=== PATIENT | female | born 1940 | race Caucasian/White ===

== ENCOUNTER → 2017-06-04 | Outpatient (CLI) | payer MEDICARE, BC ==
[~2017-06-04] MED LIST: ALPR1 PO; CHOL10002 PO; DONE10 PO; DULO60 PO; ENOX40I SC; MELA3 PO; NAPR220 PO; OMEP40CA12 PO; OXYACE5T PO
== END | disposition home or self-care (01) ==
LOC: LAB EV 17:31
DX: N76.0 Acute vaginitis (principal); B96.89 Other specified bacterial agents as the cause of diseases classified elsewhere
CPT/HCPCS: 87070; 87205

== ENCOUNTER → 2018-07-06 | Outpatient (CLI) | payer MEDICARE, BC ==
[2018-07-06 13:39] LABS: BASOPHILS ABSOLUTE AUTO 0.03 K/mm3 (0.00-0.23); BASOPHILS PERCENT AUTO 0 % (0-2); EOSINOPHILS ABSOLUTE AUTO 0.01 K/mm3 (0.00-0.68); EOSINOPHILS PERCENT AUTO 0 % (0-6); Hematocrit 42.7 % (33.0-51.0); Hemoglobin 14.6 g/dL (11.5-16.0); IMMATURE GRAN ABSOLUTE AUTO 0.04 K/mm3 (0.00-0.10); IMMATURE GRAN PERCENT AUTO 0 % (0-1); LYMPHOCYTES ABSOLUTE AUTO 0.68 K/mm3 (0.84-5.20); LYMPHOCYTES PERCENT AUTO 6 % (21-46); MONOCYTES ABSOLUTE AUTO 0.21 K/mm3 (0.16-1.47); MONOCYTES PERCENT AUTO 2 % (4-13); Mean Corpuscular HGB Conc 34.2 g/dL (31.5-36.5); Mean Corpuscular Volume 91 fL (80-100); Mean Platelet Volume 11.7 fL (9.1-12.4); NEUTROPHILS ABSOLUTE AUTO 10.16 K/mm3 (1.96-9.15); NEUTROPHILS PERCENT AUTO 91 % (41-73); Platelet Count 228 K/mm3 (150-400); RDW Coefficient Variation 13.1 % (11.7-14.2); RDW Standard Deviation 43.5 fL (35.1-46.3); Red Blood Cell Count 4.71 M/mm3 (3.80-5.20); White Blood Cell Count 11.13 K/mm3 (4.00-11.30)
[2018-07-06 13:52] LABS: Alanine Aminotransfer (ALT/SGP 27 U/L (12-78); Albumin, Blood 4.5 g/dL (3.4-5.0); Albumin/Globulin Ratio 1.3 (0.8-1.8); Alk Phos 95 U/L (40-126); Anion Gap 12 mmol/L (6-16); Aspartate Aminotrans (AST/SGOT 20 U/L (12-37); Bilirubin, Total 0.7 mg/dL (0.1-1.0); Blood Urea Nitrogen 12 mg/dL (8-24); Bun/Creatinine Ratio 15.2 (12.0-20.0); CO2, Blood 28 mmol/L (21-32); Calcium, Blood 9.7 mg/dL (8.5-10.1); Chloride, Blood 103 mmol/L (98-108); Creatinine, Blood 0.79 mg/dL (0.40-1.00); Globulin, Blood 3.6 g/dL (2.2-4.0); Glomerular Filtration Rate >60 (60-); Glucose, Blood 132 mg/dL (70-99); Potassium, Blood 3.9 mmol/L (3.5-5.5); Sodium, Blood 143 mmol/L (136-145); Total Protein, Blood 8.1 g/dL (6.4-8.2)
== END | disposition home or self-care (01) ==
LOC: LAB SHORT 13:35 → LAB EV 13:35
PROVIDERS: Family Medicine
DX: N39.0 Urinary tract infection, site not specified (principal); R11.2 Nausea with vomiting, unspecified
CPT/HCPCS: 80053; 85025

== ENCOUNTER 2018-07-22 16:28 | Emergency (ER) | payer MEDICARE ==
[~2018-07-22] VITALS: Ht 175.3 cm; Wt 74.8 kg
[2018-07-22 18:15] LABS: BASOPHILS ABSOLUTE AUTO 0.04 K/mm3 (0.00-0.23); BASOPHILS PERCENT AUTO 1 % (0-2); EOSINOPHILS ABSOLUTE AUTO 0.05 K/mm3 (0.00-0.68); EOSINOPHILS PERCENT AUTO 1 % (0-6); Hematocrit 37.1 % (33.0-51.0); Hemoglobin 12.2 g/dL (11.5-16.0); IMMATURE GRAN ABSOLUTE AUTO 0.01 K/mm3 (0.00-0.10); IMMATURE GRAN PERCENT AUTO 0 % (0-1); LYMPHOCYTES ABSOLUTE AUTO 1.49 K/mm3 (0.84-5.20); LYMPHOCYTES PERCENT AUTO 31 % (21-46); MONOCYTES ABSOLUTE AUTO 0.28 K/mm3 (0.16-1.47); MONOCYTES PERCENT AUTO 6 % (4-13); Mean Corpuscular HGB 31.7 pg (26.0-34.0); Mean Corpuscular HGB Conc 32.9 g/dL (31.5-36.5); Mean Corpuscular Volume 96 fL (80-100); Mean Platelet Volume 11.8 fL (9.1-12.4); NEUTROPHILS ABSOLUTE AUTO 2.98 K/mm3 (1.96-9.15); NEUTROPHILS PERCENT AUTO 62 % (41-73); Platelet Count 139 K/mm3 (150-400); RDW Coefficient Variation 12.4 % (11.7-14.2); RDW Standard Deviation 44.3 fL (35.1-46.3); Red Blood Cell Count 3.85 M/mm3 (3.80-5.20); White Blood Cell Count 4.85 K/mm3 (4.00-11.30)
[2018-07-22 18:32] LABS: Alanine Aminotransfer (ALT/SGP 25 U/L (12-78); Albumin, Blood 3.1 g/dL (3.4-5.0); Alk Phos 85 U/L (50-136); Anion Gap 3 mmol/L (6-16); Aspartate Aminotrans (AST/SGOT 18 U/L (12-37); Bilirubin, Total 0.3 mg/dL (0.1-1.0); Blood Urea Nitrogen 12 mg/dL (8-24); Bun/Creatinine Ratio 18.8 (12.0-20.0); CO2, Blood 29 mmol/L (21-32); Calcium, Blood 8.5 mg/dL (8.5-10.1); Chloride, Blood 111 mmol/L (98-108); Creatinine, Blood 0.64 mg/dL (0.40-1.00); Free Thyroxine 0.93 ng/dL (0.70-1.60); Glomerular Filtration Rate >60 (60-); Glucose, Blood 103 mg/dL (70-99); Potassium, Blood 3.9 mmol/L (3.5-5.5); Sodium, Blood 143 mmol/L (136-145); Total Protein, Blood 6.1 g/dL (6.4-8.2)
[2018-07-22 19:11] LABS: Source, Urine Clean Catch
[2018-07-22 19:13] LABS: Appearance, Urine Cloudy (Clear); Bilirubin, Urine Neg (Neg); Blood, Urine Neg (Neg); Color, Urine Yellow (P-Yellow); Glucose Qualitative, Urine Neg (Neg); Ketones, Urine Neg (Neg); Leukocyte Esterase, Urine Neg (Neg); Nitrite, Urine Neg (Neg); Protein, Urine 1+ (Neg); Urobilinogen, Urine NORM (Normal)
[2018-07-22 19:52] LABS: Amorphous Heavy (0-Heavy); Bacteria Few /hpf; Red Blood Cells, Urine Not Seen /hpf (0-2); Squamous Epithelial Cells Rare /hpf (Few); White Blood Cells, Urine Not Seen /hpf (0-5)
== END 2018-07-23 01:49 | disposition home or self-care (01) ==
LOC: ER 16:28
PROVIDERS: Emergency Medicine
DX: R53.1 Weakness (principal); Z79.899 Other long term (current) drug therapy; F03.90 Unspecified dementia, unspecified severity, without behavioral disturbance, psychotic disturbance, mood disturbance, and anxiety
CPT/HCPCS: 36415; 71046; 80053; 81001; 83735; 84439; 84443; 85025; 93005; 93010; 99285-25; J7030

== ENCOUNTER 2018-09-30 15:14 | Emergency (ER) | payer MEDICARE ==
[~2018-09-30] VITALS: Ht 172.7 cm; Wt 72.6 kg
[2018-09-30] MEDS ORDERED: KETO10 PO (16:51)
== END 2018-09-30 17:10 | disposition home or self-care (01) ==
LOC: ER 15:14
DX: M47.892 Other spondylosis, cervical region (principal); Z90.49 Acquired absence of other specified parts of digestive tract; Z87.891 Personal history of nicotine dependence; W18.30XA Fall on same level, unspecified, initial encounter
CPT/HCPCS: 70450; 72125; 99284-25

== ENCOUNTER 2021-09-23 09:20 | Emergency (ER) | payer MEDICARE ==
[~2021-09-23] VITALS: Ht 177.8 cm; Wt 68.0 kg
[~2021-09-23 09:20] MED LIST changes: +KETO10 PO
[2021-09-23 09:59] LABS: BASOPHILS ABSOLUTE AUTO 0.01 K/mm3 (0.00-0.23); BASOPHILS PERCENT AUTO 0 % (0-2); EOSINOPHILS PERCENT AUTO 0 % (0-6); Hematocrit 38.8 % (33.0-51.0); Hemoglobin 13.3 g/dL (11.5-16.0); IMMATURE GRAN ABSOLUTE AUTO 0.01 K/mm3 (0.00-0.10); IMMATURE GRAN PERCENT AUTO 0 % (0-1); LYMPHOCYTES ABSOLUTE AUTO 0.83 K/mm3 (0.84-5.20); LYMPHOCYTES PERCENT AUTO 23 % (21-46); MONOCYTES ABSOLUTE AUTO 0.23 K/mm3 (0.16-1.47); MONOCYTES PERCENT AUTO 6 % (4-13); Mean Corpuscular HGB 29.9 pg (26.0-34.0); Mean Corpuscular HGB Conc 34.3 g/dL (31.5-36.5); Mean Corpuscular Volume 87 fL (80-100); Mean Platelet Volume 12.2 fL (9.1-12.4); NEUTROPHILS PERCENT AUTO 71 % (41-73); Platelet Count 117 K/mm3 (150-400); RDW Coefficient Variation 12.3 % (11.7-14.2); RDW Standard Deviation 39.8 fL (35.1-46.3); Red Blood Cell Count 4.45 M/mm3 (3.80-5.20); White Blood Cell Count 3.68 K/mm3 (4.00-11.30)
[2021-09-23 10:17] LABS: Albumin, Blood 3.5 g/dL (3.4-5.0); Albumin/Globulin Ratio 1.1 (0.8-1.8); Bilirubin, Total 0.6 mg/dL (0.1-1.0); Bun/Creatinine Ratio 23.1 (12.0-20.0); Creatinine, Blood 0.61 mg/dL (0.40-1.00); Globulin, Blood 3.2 g/dL (2.2-4.0); Potassium, Blood 3.3 mmol/L (3.5-5.5); Total Protein, Blood 6.7 g/dL (6.4-8.2)
[2021-09-23 10:48] LABS: Source, Urine Clean Catch
[2021-09-23 10:51] LABS: Appearance, Urine Hazy (Clear); Bilirubin, Urine Neg (Neg); Blood, Urine 1+ (Neg); Color, Urine Yellow (P-Yellow); Glucose Qualitative, Urine Neg (Neg); Ketones, Urine 3+ (Neg); Leukocyte Esterase, Urine 3+ (Neg); Nitrite, Urine Neg (Neg); Protein, Urine 1+ (Neg); Specific Gravity, Urine 1.025 (1.003-1.022); Urobilinogen, Urine NORM (Normal)
[2021-09-23 11:06] LABS: Bacteria Many /hpf; Mucus Light (0-Heavy); Squamous Epithelial Cells Few /hpf (Few)
[2021-09-23] MEDS ORDERED: CEPH500 PO (11:42)
[2021-09-23] MEDS ORDERED: ONDA4ODT MM (11:42)
== END 2021-09-23 12:20 | disposition home or self-care (01) ==
LOC: ER 09:20
PROVIDERS: Emergency Medicine
DX: K52.9 Noninfective gastroenteritis and colitis, unspecified (principal); N39.0 Urinary tract infection, site not specified; E27.8 Other specified disorders of adrenal gland; K76.9 Liver disease, unspecified; F03.90 Unspecified dementia, unspecified severity, without behavioral disturbance, psychotic disturbance, mood disturbance, and anxiety; D70.9 Neutropenia, unspecified; D69.6 Thrombocytopenia, unspecified; E87.6 Hypokalemia
CPT/HCPCS: 51701; 74177; 80053; 81001; 83690; 85025; J0696; J2765; J7030; Q9967

== ENCOUNTER 2023-10-20 16:53 | Emergency (ER) | payer MEDICARE ==
[~2023-10-20] VITALS: Ht 175.3 cm; Wt 63.5 kg
[~2023-10-20 16:53] MED LIST changes: +CEPH500 PO; +ONDA4ODT MM
[2023-10-20] MEDS ORDERED: Ondansetron HCl 2 MG / ML 2ML Vial ONE (17:11)
[2023-10-20] MEDS ORDERED: Ondansetron HCl 2 MG / ML 2ML Vial IV PRN (17:20)
[2023-10-20 17:29] LABS: BASOPHILS ABSOLUTE AUTO 0.01 K/mm3 (0.00-0.23); BASOPHILS PERCENT AUTO 0 % (0-2); EOSINOPHILS PERCENT AUTO 0 % (0-6); Hematocrit 41.3 % (33.0-51.0); Hemoglobin 13.9 g/dL (11.5-16.0); IMMATURE GRAN ABSOLUTE AUTO 0.03 K/mm3 (0.00-0.10); IMMATURE GRAN PERCENT AUTO 0 % (0-1); LYMPHOCYTES ABSOLUTE AUTO 0.12 K/mm3 (0.84-5.20); LYMPHOCYTES PERCENT AUTO 2 % (21-46); MONOCYTES ABSOLUTE AUTO 0.27 K/mm3 (0.16-1.47); MONOCYTES PERCENT AUTO 4 % (4-13); Mean Corpuscular HGB Conc 33.7 g/dL (31.5-36.5); Mean Corpuscular Volume 89 fL (80-100); Mean Platelet Volume 11.6 fL (9.1-12.4); NEUTROPHILS ABSOLUTE AUTO 7.14 K/mm3 (1.96-9.15); NEUTROPHILS PERCENT AUTO 94 % (41-73); Platelet Count 207 K/mm3 (150-400); RDW Coefficient Variation 12.7 % (11.7-14.2); RDW Standard Deviation 41.8 fL (35.1-46.3); Red Blood Cell Count 4.63 M/mm3 (3.80-5.20); White Blood Cell Count 7.57 K/mm3 (4.00-11.30)
[2023-10-20] MEDS ORDERED: NS 1,000 ML IV SCH (17:30)
[2023-10-20 17:52] LABS: Albumin, Blood 4.1 g/dL (3.4-5.0); Albumin/Globulin Ratio 1.2 (0.8-1.8); Bilirubin, Total 0.7 mg/dL (0.1-1.0); Bun/Creatinine Ratio 39.4 (12.0-20.0); Calcium, Blood 9.4 mg/dL (8.5-10.1); Creatinine, Blood 0.69 mg/dL (0.40-1.00); Globulin, Blood 3.5 g/dL (2.2-4.0); Potassium, Blood 3.4 mmol/L (3.5-5.5); Total Protein, Blood 7.6 g/dL (6.4-8.2)
[2023-10-20] MEDS ORDERED: ONDA4ODT MM (19:47)
[2023-10-20] MEDS ORDERED: RX Prepack 2 Tabs Ondansetron ODT 4MG UD ONE (19:50)
[2023-10-20 21:06] VITALS: BP 123/88
== END 2023-10-20 22:44 | disposition home or self-care (01) ==
LOC: ER 16:53
PROVIDERS: Emergency Medicine
DX: K52.9 Noninfective gastroenteritis and colitis, unspecified (principal); F03.90 Unspecified dementia, unspecified severity, without behavioral disturbance, psychotic disturbance, mood disturbance, and anxiety
CPT/HCPCS: 80053; 85025; 96361; 96374; 99284-25; A9270; J2405; J7030

== ENCOUNTER 2024-01-06 20:19 | Emergency (ER) | payer MEDICARE ==
[~2024-01-06] VITALS: Ht 175.3 cm; Wt 63.5 kg
[2024-01-07 01:00] VITALS: BP 129/57
== END 2024-01-07 01:57 | disposition home or self-care (01) ==
LOC: ER 20:19
DX: S80.01XA Contusion of right knee, initial encounter (principal); G43.909 Migraine, unspecified, not intractable, without status migrainosus; W18.30XA Fall on same level, unspecified, initial encounter; Z79.899 Other long term (current) drug therapy
CPT/HCPCS: 73562-RT; 99284-25

== ENCOUNTER 2024-04-08 16:29 | Inpatient (IN) | payer MEDICARE ==
[~2024-04-08] VITALS: Ht 200.7 cm; Wt 64.2 kg
[2024-04-08] MEDS ORDERED: HYDROmorphone HCl/Pf 1MG SYR IV ONE (17:00)
[2024-04-08] MEDS ORDERED: Ondansetron HCl 2 MG / ML 2ML Vial IV ONE (17:00)
[2024-04-08] MEDS ORDERED: FLU VACC TS2024-25(6MOS UP)/PF 45 MCG/0.5 ML SYRINGE IM SCH (18:40)
[2024-04-08] MEDS ORDERED: Ondansetron HCl 2 MG / ML 2ML Vial IV PRN (18:40)
[2024-04-08] MEDS ORDERED: FentaNYL Citrate 50 MCG/ML 2 ML Injection IV PRN (18:45)
[2024-04-08] MEDS ORDERED: OxyCODONE 5 mg/Acetamin 325 mg TABLET PO PRN (18:45)
[2024-04-08 18:51] LABS: Hematocrit 41.7 % (33.0-51.0); Hemoglobin 13.9 g/dL (11.5-16.0); Mean Corpuscular HGB 30.1 pg (26.0-34.0); Mean Corpuscular HGB Conc 33.3 g/dL (31.5-36.5); Mean Corpuscular Volume 90 fL (80-100); Mean Platelet Volume 11.2 fL (9.1-12.4); Platelet Count 228 K/mm3 (150-400); RDW Coefficient Variation 12.1 % (11.7-14.2); RDW Standard Deviation 39.8 fL (35.1-46.3); Red Blood Cell Count 4.62 M/mm3 (3.80-5.20)
[2024-04-08 19:01] LABS: Bun/Creatinine Ratio 21.2 (12.0-20.0); Calcium, Blood 9.4 mg/dL (8.5-10.1); Creatinine, Blood 0.66 mg/dL (0.40-1.00)
[2024-04-08] MEDS ORDERED: Sennosides 8.6 MG Tab PO SCH (21:00)
[2024-04-08 21:06] VITALS: BP 149/69
--- NOTE | 2024-04-08 21:59 | NUR ---
ADMIT PT ARRIVED TO 213 @APPROX 2100. 4 PER SLIDE TRANSFER TO BED. ADMITTED FOR L HIP FX. LLE IS EXTERNALLY ROTATED & PAINFUL TO MOVE. PT AOX3-SELF, PLACE, SITUATION. HX DEMENTIA, PLACED BED ALARM ON FOR SAFETY.
[2024-04-08] MEDS ORDERED: NS 1,000 ML IV SCH (23:30)
[2024-04-09] VITALS (19 sets, daily range): BP systolic 67–142; BP diastolic 44–95
--- NOTE | 2024-04-09 05:33 | NUR ---
SHIFT SUMMARY AOX2-3, SELF, PLACE, SITUATION. VERY FORGETFUL, WILL USE CALL LIGHT & THEN FORGET WHY SHE CALLED FOR HELP. HX DEMENTIA. EASILY REDIRECTABLE, HOWEVER CAN BECOME AGITATED & IRRITABLE W/STAFF WHILE THEY ARE PERFORMING CARE. VSS. REPORTS 8/10 PAIN TO L HIP, WORSE W/MOVEMENT OR TOUCH. PAIN DOES DECREASE W/PRN PAIN MEDICATION & PT ABLE TO REST ON/OFF T/O NIGHT. LLE EXTERNALLY ROTATED, DENIES N/T, CAP REFILL <3 SEC, STRONG PULSE. PT HAD 1 EPISODE EMESIS UPON ARRIVAL TO UNIT AFTER TRANSFER BUT HASNT REPORTED ANY FURTHER NAUSEA OR HAD EMESIS. PT HAS BEEN NPO SINCE MIDNIGHT FOR POSSIBLE SURGICAL INTERVENTION. CALL LIGHT & BED ALARM IN PLACE.
--- NOTE | 2024-04-09 05:39 | NUR ---
CAREGIVER CAREGIVER SJ OLIVAS'S CONTACT NUMBER IS [phone], PT STATES WE CAN DISCUSS CARE W/HER.
[2024-04-09] MEDS ORDERED: Enoxaparin 40 MG/0.4 ML SYR SC SCH (09:00)
[2024-04-09] MEDS ORDERED: Docusate Sodium 100 MG Cap PO SCH (09:00)
[2024-04-09] MEDS ORDERED: Lactated Ringer's 1,000 ML IV SCH (09:15)
--- NOTE | 2024-04-09 09:25 | NUR ---
SURGERY: PT TO THE OR AT THIS TIME. CONSENT SIGNED WITH DR THACKER. NURSE FROM [facility] IN TO CHECK ON PATIENT. SURGICAL PACKET COMPLETED AND PREOP WASH DONE. ATTENDS LEFT IN PLACE FOR INCONTINENCE. WILL CONT TO MONITOR WHEN RETURNS TO ROOM.
--- NOTE | 2024-04-09 09:40 | NUR ---
History, Chart, Medications and Allergies reviewed before start of procedure. Lungs clear T/O to Auscultation. Patient confirms NPO status and agrees with scheduled surgery. Pre-Op teaching done. Pt verbalizes understanding. PT IS ALERT AND ORIENTED TO SELF, PLACE, AND EVENT. ANSWERS ALL QUESTIONS APPROPRIATELY. PT IS INCONTINENT AND PRESENTS IN AN ATTENDS. EKG COMPLETED ON ARRIVAL TO DAY SURGERY.
[2024-04-09] MEDS ORDERED: Bupivacaine 0.5% HCl 5 MG/ML 30MLVIAL ONE (09:51)
[2024-04-09] MEDS ORDERED: EpiNEPhrine 1 MG/1 ML 1ML Vial ONE (09:51)
[2024-04-09] MEDS ORDERED: CeFAZolin Sodium 2,000 MG in NS 100 ML IV SCH ×2 (09:55→18:45)
[2024-04-09] MEDS ORDERED: CeFAZolin Sodium 2,000 MG VIAL ONE (10:01)
[2024-04-09] MEDS ORDERED: propofoL 100 ML IV ONE (10:23)
[2024-04-09] MEDS ORDERED: propofoL 20 ML IV ONE (10:27)
[2024-04-09] MEDS ORDERED: Tranexamic Acid 1,000 MG in NS 100 ML IV SCH (10:40)
[2024-04-09] MEDS ORDERED: Ondansetron HCl 2 MG / ML 2ML Vial ONE (11:06)
[2024-04-09] MEDS ORDERED: Dexamethasone Sod Phos 10 MG/ML 1ML VIAL ONE (11:06)
[2024-04-09] MEDS ORDERED: Phenylephrine HCl 100 MCG/ML-NS 10MLSYR (1MG/10ML) ONE (11:06)
[2024-04-09] MEDS ORDERED: ePHEDrine Sulfate 50 MG/ML 1ML Injection ONE (11:10)
--- NOTE | 2024-04-09 13:00 | NUR ---
POST OP: PT RETURNED TO ROOM 212 ALERT AND ORIENTED X2. PT DENIES PAIN, HAD REGIONAL BLOCK FOR PAIN. DECREASED SENSATION IN LEFT FOOT. CIRC WNL. AQUACEL X2 CDI. VSS. PT GIVEN CRACKERS, WATER AND JELLO. DENIES NAUSEA. WILL CONT TO MONITOR POST OP.
--- NOTE | 2024-04-09 19:22 | NUR ---
PT HAS BEEN STABLE POST OP DAY 0 FOR LEFT HIP NAILING. AQUACEL X2 CDI. PT SENSATION AND CIRCULATION WNL. PT HAVING HIGH LEVELS OF PAIN, PT UNABLE TO WORK WITH HER TODAY. MEDICATED NEEDED WITH PRN PERCOCET AND FENTANYL. TURNING IN BED NEEDED. ENCOURAGING PO INATAKE. CONT IV FLUIDS ORDERED. ATTENDS ON FOR INCONTINENCE. PAS TO BLE. PT CONFUSED AT TIMES. BED ALARM ON FOR SAFETY.
[2024-04-10 00:15] VITALS: BP 173/91
[2024-04-10 02:13] VITALS: BP 138/66
[2024-04-10] MEDS ORDERED: NS 250 ML IV PRN (04:05)
--- NOTE | 2024-04-10 05:00 | NUR ---
POST OP ANTIBIOTIC PT PULLED OUT HER IV. PT IS A VERY DIFFICULT IV START, HEAD END DESIZING MACHINE OPERATOR TRIED TO PLACE AN IV BUT WAS UNSUCESSFUL. SOUND CUTTER WAS ABLE TO ESTABLISH AN IV VIA ULTRASOUND. BUT UNFORTUNATELY THAT IV INFILTRATED TOWARDS THE END OF IV ANTIBIOTIC INFUSION. PT RECEIVED APPROX 60% OF IV ANTIBIOTIC BEFORE INFILTRATION. HEAD END DESIZING MACHINE OPERATOR MADE AWARE. PER DISCUSSION WITH HEAD END DESIZING MACHINE OPERATOR, NOTIFY DAYSALFT RN FOR FURTHER FOLLOW UP. PT HAS NO IV ACCESS AT THIS TIME DUE TO DIFFICULTY OF PLACEMENT.
--- NOTE | 2024-04-10 05:20 | NUR ---
SHIFT SUMMARY PT POD 0 LEFT HIP PINNING. PT PAIN MANANGED WITH MEDS PER EMAR. PT A/OX2-3, BUT IS VERY FORGETFUL. PT FORGETFUL TO SITUATION, AND WHY SHE IS IN THE HOSPITAL. PULLS AT LINES AND REMOVES DRESSING. PT REMOVED HER ADQUACEL DRESSING ON HIP. DRESSING REPLACED. PT ALSO PULLED OUT HER IV. ANOTHER IV WAS PLACED VIA ULTRASOUND, THAT LATER INFILTRATED. MOOD IS LABILE. PT AT TIMES PLESANT, BUT BECOMES EASILY IRRITABLE WITH STAFF. PT RESTED IN BED T/O THE NIGHT. PAINFUL WITH MOVEMENT. SURGICAL SITE WNL. PAIN MANAGED WITH MEDS PER EMAR. BED IN LOWEST POSITION, CALL LIGHT WITHIN REACH.
--- NOTE | 2024-04-10 07:23 | NUR ---
ANTIBIOTIC DAYSHIEMELY RN NOTIFIED THAT PT DID NOT RECEIVE FULL DOSE OF ANTIBIOTIC DUE TO IV INFILTRATION. ANABEL FARLEY ALE AGREES TO FOLLOW UP WITH PROVIDER REGARDING PARTIAL IV ANTIBIOTIC DOSE.
--- NOTE | 2024-04-10 08:00 | NUR ---
REPORT FROM NOC RN THAT PT PULLED OUT TWO IVS AND ONLY RECIEVED 60% OF LAST ANCEF DOSE. INFORMED DR. THACKER, RECIEVED ORDER FOR IM ANCEF.
[2024-04-10 09:12] VITALS: BP 141/63
[2024-04-10] MEDS ORDERED: CeFAZolin Sodium 1000 mg Vial IM ONE (09:30)
--- NOTE | 2024-04-10 11:26 | NUR ---
REGAINED IV ACCESS, PT TOLERATED WELL. ABLE TO RESUME LAST DOSE OF IV ANCEF, INFORMED DR. THACKER.
[2024-04-10 15:08] VITALS: BP 139/67
--- NOTE | 2024-04-10 19:34 | NUR ---
SHIFT SUMMARY POD1 L HIP PINNING, PT IS A/O X 3-4, CALLING APPROPRIATELY, VOIDING W/ PURWICK, TOLERATING REG DIET, PAIN TOLERABLE W/ PAIN MEDS PER EMAR. DRESSINGS C/D/I, CIRCULATION INTACT TO L LEG. PT IS 1-2 ASST TO SIT ON EDGE OF BED, PT SAT UP FOR PART OF DINNER PER ORDERS. L FOREARM IV SALINE LOCKED. PT WAS COOPERATIVE W/ CARE TODAY. PT RESTING COMFORTABLY W/ CALL LIGHT IN REACH, BED ALARM ON.
[2024-04-10 19:47] VITALS: BP 133/73
[2024-04-11 04:54] VITALS: BP 145/63
[2024-04-11 05:44] LABS: BASOPHILS ABSOLUTE AUTO 0.03 K/mm3 (0.00-0.23); BASOPHILS PERCENT AUTO 0 % (0-2); EOSINOPHILS ABSOLUTE AUTO 0.02 K/mm3 (0.00-0.68); EOSINOPHILS PERCENT AUTO 0 % (0-6); Hematocrit 30.3 % (33.0-51.0); Hemoglobin 10.2 g/dL (11.5-16.0); IMMATURE GRAN ABSOLUTE AUTO 0.03 K/mm3 (0.00-0.10); IMMATURE GRAN PERCENT AUTO 0 % (0-1); LYMPHOCYTES PERCENT AUTO 14 % (21-46); MONOCYTES ABSOLUTE AUTO 0.62 K/mm3 (0.16-1.47); MONOCYTES PERCENT AUTO 8 % (4-13); Mean Corpuscular HGB 30.2 pg (26.0-34.0); Mean Corpuscular HGB Conc 33.7 g/dL (31.5-36.5); Mean Corpuscular Volume 90 fL (80-100); Mean Platelet Volume 11.2 fL (9.1-12.4); NEUTROPHILS ABSOLUTE AUTO 5.98 K/mm3 (1.96-9.15); NEUTROPHILS PERCENT AUTO 77 % (41-73); Platelet Count 142 K/mm3 (150-400); RDW Coefficient Variation 12.4 % (11.7-14.2); RDW Standard Deviation 40.8 fL (35.1-46.3); Red Blood Cell Count 3.38 M/mm3 (3.80-5.20); White Blood Cell Count 7.78 K/mm3 (4.00-11.30)
--- NOTE | 2024-04-11 05:47 | NUR ---
SHIFT SUMMARY PT HAS RESTED T/O THE NIGHT. PT HAS BEEN MUCH MORE RELAXED THIS SHIFT, ANXIETY HAS BEEN MINIMAL. PT HAS NOT BEEN PULLING ON HER LINES OR HER DRESSINGS. SURGICAL SITE WNL, DRESSINGS C/D/I. PAIN MANANGED WITH MEDS PER EMAR. PLAN OF CARE REMAINS UNCHANGED. BED IN LOWEST POSITION, CALL LIGHT WITHIN REACH.
[2024-04-11 06:14] LABS: Creatinine, Blood 0.67 mg/dL (0.40-1.00); Potassium, Blood 3.5 mmol/L (3.5-5.5)
[2024-04-11 09:19] VITALS: BP 138/62
[2024-04-11 15:10] VITALS: BP 130/61
[2024-04-11 19:17] VITALS: BP 118/64
--- NOTE | 2024-04-11 19:23 | NUR ---
SHIFT SUMMARY PT IS POD2 FOR L HIP PINNING. A/O X 4 MOST OF THIS SHIFT BUT CAN BE FORGETFUL, PT UNCOOPERATIVE W/ CARE AT TIMES, REFUSING TO REPOSITION INTERMITTENTLY. PT CALLS OUT WHEN MOVING BUT REPORTS PAIN TOLERABLE AT REST W/ PRN PAIN MEDS PER EMAR. VSS. PT TOLERATING REG DIET AND PO FLUIDS, SALINE LOCKED. VOIDING INC W/ PURWICK DRAINING YELLOW URINE. CIRCULATION INTACT TO L FOOT. AT APPROX 1800, CUPBOARD BUILDER REPORTED TO THIS RN THAT PT HAD "CANNABIS OIL" AND WAS REFUSING TO GIVE IT TO THE CUPBOARD BUILDER. PT CONTINUED TO REFUSE TO GIVE IT TO STAFF DESPITE EDUCATION EFFORTS ABOUT HOSPITAL POLICY AND POSSIBLE SIDE EFFECTS. PT EVENTUALLY HANDED THE ITEM WHICH APPEARED TO BE AN EDIBLE CONTAINING THC TO THE CUPBOARD BUILDER. ITEM DID NOT APPEAR OPENED AND PT DENIED HAVING INGESTED ANY. ITEM WAS LOCKED IN PT DRAWER W/ PT LABEL, SECURITY NOTIFIED @ 1930 AND IS TO COME RETRIEVE ITEM SHORTLY. PT CURRENTLY RESTING W/ BED ALARM ON FOR SAFETY. CALL LIGHT IN REACH.
[2024-04-11] MEDS ORDERED: Melatonin 5 MG Tablet PO PRN (21:15)
[2024-04-12 04:13] VITALS: BP 141/73
--- NOTE | 2024-04-12 06:21 | NUR ---
SHIFT SUMMARY ASSUMED CARE OF PT AT 1900. PT A&O3 AND FORGETFUL. PT COOPERATIVE IN CARE AND ABLE TO MAKE NEEDS KNOWN. PT IRIATABLE, IMPATIENT AND SARCASTIC TO STAFF. PER PT REQUEST; CALLED OVERNIGHT MD FOR PRN MELATONIN D/T PT REPORTING NOT BEING ABLE TO SLEEP THE NIGHT BEFORE. PT PRESENTED WITH AQUACELL TO THE OUTTER PORTION OF THE L THIGH; DRESSING C/D/I. VSS AND PT REMAINED ON RA. PT'S BED IN LOWEST POSITION AND CALL LIGHT WITHIN REACH.
[2024-04-12 07:08] VITALS: BP 137/67
[2024-04-12 14:49] VITALS: BP 137/76
--- NOTE | 2024-04-12 18:29 | NUR ---
SHIFT SUMMARY POD3 L HIP PINNING, A/OX3, VSS, TOLERATING PO, PAIN WELL MANAGED, AMBULATING WELL WITH 1 ASSIST, WORKED WITH TEHRAPY, UP TO CHAIR FOR LUNCH. NO ACUTE EVENTS THIS SHIFT, CALL LIGHT IN REACH.
[2024-04-12 19:16] VITALS: BP 141/65
--- NOTE | 2024-04-13 04:19 | NUR ---
SHIFT SUMMARY PATIENT SLEPT WELL EARLY IN THE SHIFT, BUT WAS AWAKE OFTEN FROM 0200 ON. MEDICATED WITH PRN SLEEP AND PAIN MEDS. SHORT TERM MEMORY IS GONE, BUT HAS NOT TRIED TO GET OUT OF BED. DRESSINGS, CD&I X 2.
[2024-04-13 05:13] LABS: Hematocrit 31.9 % (33.0-51.0); Hemoglobin 10.8 g/dL (11.5-16.0)
[2024-04-13 05:37] VITALS: BP 122/70
[2024-04-13 05:46] LABS: Bun/Creatinine Ratio 24.7 (12.0-20.0); Calcium, Blood 9.1 mg/dL (8.5-10.1); Creatinine, Blood 0.57 mg/dL (0.40-1.00); Potassium, Blood 3.6 mmol/L (3.5-5.5)
[2024-04-13 07:24] VITALS: BP 143/80
--- NOTE | 2024-04-13 16:04 | NUR ---
DISCHARGE SUMMARY PT PICKED UP BY TRANSPORT TO BE TAKEN TO [facility], CALLED TO GIVE REPORT TO NURSING STAFF BUT WAS TRANSFERRED TO AN UNKNOWN MAILBOX. CALLED BACK AND REPORT WAS GIVEN. IV REMOVED PRIOR TO DISCHARGE.
== END 2024-04-13 13:55 | DRG 481 ==
LOC: ER 16:29 → SURS 18:38 → ERHOLD 18:38 → SURS 21:00
PROVIDERS: Hospitalist; Internal Medicine; Nurse Practitioner Acute Care; Orthopaedic Surgery Sports Medicine; ADMIT Internal Medicine
PROC: 0QH734Z Insertion of Internal Fixation Device into Left Upper Femur, Percutaneous Approach (ICD-10-PCS; principal; 2024-04-09 11:00)
DX: S72.142A Displaced intertrochanteric fracture of left femur, initial encounter for closed fracture (principal); E44.0 Moderate protein-calorie malnutrition; Z68.1 Body mass index [BMI] 19.9 or less, adult; S72.002A Fracture of unspecified part of neck of left femur, initial encounter for closed fracture; W18.30XA Fall on same level, unspecified, initial encounter; F12.90 Cannabis use, unspecified, uncomplicated; G43.909 Migraine, unspecified, not intractable, without status migrainosus; G30.9 Alzheimer's disease, unspecified; F02.80 Dementia in other diseases classified elsewhere, unspecified severity, without behavioral disturbance, psychotic disturbance, mood disturbance, and anxiety; Z79.899 Other long term (current) drug therapy; M19.90 Unspecified osteoarthritis, unspecified site; Z90.49 Acquired absence of other specified parts of digestive tract; Z98.890 Other specified postprocedural states; Z88.8 Allergy status to other drugs, medicaments and biological substances
CPT/HCPCS: 36415; 73502; 80048; 85014; 85018; 85025; 85027; 93005; 93010; 96374; 96375; 97110; 97162; 97165; 97530; 97535; 99285-25; A9270; C1713; J0171; J0690; J1100; J1171; J1650; J2371; J2405; J2704; J3010; J7030; J7120

== ENCOUNTER 2024-07-13 15:00 | Emergency (ER) | payer MEDICARE ==
[~2024-07-13] VITALS: Ht 175.3 cm; Wt 54.0 kg
[2024-07-13] MEDS ORDERED: Aspir 8181 MG PO (15:30)
[2024-07-13] MEDS ORDERED: SENNA LAXATIVE8.6 MG PO (15:31)
[2024-07-13] MEDS ORDERED: QUET25 PO (15:31)
[2024-07-13] MEDS ORDERED: MELATONIN5 M1 PO (15:31)
[2024-07-13] MEDS ORDERED: TRAZ50 PO (15:31)
[2024-07-13] MEDS ORDERED: DOCU100 PO (15:32)
[2024-07-13] MEDS ORDERED: ONDA4 PO (15:32)
[2024-07-13] MEDS ORDERED: Percocet 5-3251 EACH PO (15:32)
[2024-07-13] MEDS ORDERED: MIRALAX17 GM PO (15:32)
[2024-07-13] MEDS ORDERED: BISA10S PR (15:33)
[2024-07-13] MEDS ORDERED: Acetaminophen650 M1 PO (15:33)
[2024-07-13] MEDS ORDERED: BISA5EC PO (15:33)
[2024-07-13 16:09] LABS: Source, Urine Straight Cath
[2024-07-13] MEDS ORDERED: NS 1,000 ML IV SCH (16:10)
[2024-07-13 16:26] LABS: BASOPHILS ABSOLUTE AUTO 0.05 K/mm3 (0.00-0.23); BASOPHILS PERCENT AUTO 1 % (0-2); EOSINOPHILS ABSOLUTE AUTO 0.08 K/mm3 (0.00-0.68); EOSINOPHILS PERCENT AUTO 1 % (0-6); Hematocrit 39.9 % (33.0-51.0); Hemoglobin 13.6 g/dL (11.5-16.0); IMMATURE GRAN ABSOLUTE AUTO 0.03 K/mm3 (0.00-0.10); IMMATURE GRAN PERCENT AUTO 1 % (0-1); LYMPHOCYTES ABSOLUTE AUTO 1.46 K/mm3 (0.84-5.20); LYMPHOCYTES PERCENT AUTO 22 % (21-46); MONOCYTES ABSOLUTE AUTO 0.34 K/mm3 (0.16-1.47); MONOCYTES PERCENT AUTO 5 % (4-13); Mean Corpuscular HGB 31.1 pg (26.0-34.0); Mean Corpuscular HGB Conc 34.1 g/dL (31.5-36.5); Mean Corpuscular Volume 91 fL (80-100); Mean Platelet Volume 10.7 fL (9.1-12.4); NEUTROPHILS ABSOLUTE AUTO 4.63 K/mm3 (1.96-9.15); NEUTROPHILS PERCENT AUTO 70 % (41-73); Platelet Count 297 K/mm3 (150-400); RDW Coefficient Variation 13.5 % (11.7-14.2); Red Blood Cell Count 4.37 M/mm3 (3.80-5.20); White Blood Cell Count 6.59 K/mm3 (4.00-11.30)
[2024-07-13 16:26] LABS: Appearance, Urine Turbid (Clear); Bilirubin, Urine Neg (Neg); Blood, Urine 5+ (Neg); Glucose Qualitative, Urine Neg (Neg); Ketones, Urine Neg (Neg); Leukocyte Esterase, Urine 3+ (Neg); Nitrite, Urine Neg (Neg); Protein, Urine 3+ (Neg); Specific Gravity, Urine 1.025 (1.003-1.022); Urobilinogen, Urine NORM (Normal)
[2024-07-13 16:30] LABS: Color, Urine Pale Yellow (P-Yellow)
[2024-07-13 16:31] LABS: Bacteria Many /hpf; Squamous Epithelial Cells Many /hpf (Few); White Blood Cells, Urine TNTC /hpf (0-5)
[2024-07-13] MEDS ORDERED: CefTRIAXone Sodium 1,000 MG in NS 100 ML IV ONE (16:35)
[2024-07-13 16:46] LABS: Albumin/Globulin Ratio 0.9 (0.8-1.8); Bilirubin, Total 0.5 mg/dL (0.1-1.0); Bun/Creatinine Ratio 19.3 (12.0-20.0); Calcium, Blood 9.8 mg/dL (8.5-10.1); Creatinine, Blood 0.62 mg/dL (0.40-1.00); Globulin, Blood 3.4 g/dL (2.2-4.0); Total Protein, Blood 6.4 g/dL (6.4-8.2)
[2024-07-13] MEDS ORDERED: Potassium Chloride 20 MEQ TabCR PO ONE (17:30)
[2024-07-13] MEDS ORDERED: Magnesium Oxide 400 MG Tab PO ONE (17:30)
[2024-07-13] MEDS ORDERED: NS 500 ML IV SCH (18:40)
[2024-07-13 20:00] VITALS: BP 110/64
[2024-07-13] MEDS ORDERED: CEPH500 PO (20:04)
[2024-07-13] MEDS ORDERED: POTA10T PO (20:04)
== END 2024-07-13 21:20 | disposition home or self-care (01) ==
LOC: ER 15:00
PROVIDERS: Emergency Medicine
DX: N39.0 Urinary tract infection, site not specified (principal); E87.6 Hypokalemia; Z79.82 Long term (current) use of aspirin; Z79.899 Other long term (current) drug therapy; Z79.891 Long term (current) use of opiate analgesic; Z79.1 Long term (current) use of non-steroidal anti-inflammatories (NSAID); Z79.83 Long term (current) use of bisphosphonates
CPT/HCPCS: 80053; 81001; 85025; 87077; 87086; 87186; 96361; 96365; 99284-25; A9270; J0696; J7030